=== PATIENT | male | born 1955 | race Caucasian/White ===

== ENCOUNTER → 2020-01-05 08:23 | Outpatient (CLI) | payer OTHER, SELFPAY ==
[2020-01-05 11:18] LABS: COVID19 -Nasal RAPID Negative (Negative)
== END ==
PROVIDERS: PCP Family Medicine; Visit Provider Physician Assistant
DX: Z11.59 Encounter for screening for other viral diseases (principal)
CPT/HCPCS: 87635

== ENCOUNTER 2020-01-07 12:44 | Day surgery (SDC) | payer OTHER, SELFPAY ==
[2020-01-07] VITALS (10 sets, daily range): BP systolic 89–113; BP diastolic 56–73; PULSE 51–68; RESP 13–16; TEMP 36.6–36.9; O2SAT 97–98; BMI 20.9
--- NOTE | 2020-01-07 | PATH_ITS ---
[facility] Accession Number: [id number] . 01 Material submitted: . sigmoid colon - SIGMOID POLYP . 02 Diagnosis: Sigmoid Colon, Polyp: Colonic mucosa with prominent benign lymphoid aggregate. Negative for serrated lesion, dysplasia or malignancy. MRV 01/11/2020 0942 Local . 02 Electronically signed: . Prasanna Ascencio MD, PhD, Pathologist NPI- [id number] . 01 Gross description: . SIGMOID POLYP: Received in formalin is 1 fragment(s) of singh, soft tissue measuring 0.5 x 0.3 x 0.3 cm submitted entirely in 1 cassette(s) /QBJ 01/08/2020 0759 Local . 02 Pathologist provided ICD-10: K63.5 . 02 CPT . 524284 Performed at: 01 [facility] [address] [id number] MD Enzo Starks MD Phone: [phone] Performed at: [address] [facility] [address] [place], [place] [id number] MD Gabrielle Arredondo MD Phone: [phone]
[2020-01-07] MEDS: MIDAZOLAM 5 MG/5 ML VIAL IV (01:40)
--- NOTE | 2020-01-07 12:05 | PM.HP.1 ---
History of Present Illness History of Present Illness Date Patient Seen: 01/07/20 Chief complaint: SDC Narrative: 63 Years Old Male seen today for consideration of a screening colonoscopy. Last colonoscopy in 2014 indicated for family history of colorectal cancer and colon polyps, normal except for small internal hemorrhoids. Prior that, had 2 previous colonoscopies in 2004 and 2009, both normal. There have been no lower GI symptoms suggesting disease such as change in bowel habits, bleeding, abdominal pain or anemia. He does have a family history of colon cancer in his maternal uncle. Sister had colon polyps in her 40s. Overall health issues have been stable, including no major cardiac events for at least 6 weeks. Past Medical History: Left inguinal hernia Musculoskeletal:Cervical strain with mild L.neuropraxis 02/23 Obstructive Sleep Apnea: dx'd in 2009 ADVANCE DIRECTIVES: Durable Power of Deliverer Outside signed 02/24 Hemangioma of skin and subcutaneous tissue PALPITATIONS Dizzy spells PLANTAR WART HEARING LOSS INSOMNIA BUNION ACROMIOCLAVICULAR JOINT SEPARATION, RIGHT LATERAL EPICONDYLITIS, RIGHT Past Surgical History: Hernia Repair: left inguinal and right; Vasectomy Colonoscopies x 3, normal Family History: Father: Skin Cancer; Myasthenia gravis, Deafnes Mother: Hypertension , Stroke Sister(s): Adenomatous colon polyps (40's) Maternal Grandfather: Congestive Heart Failure Maternal Grandmother: Type 2 Diabetes Maternal uncle: colon cancer 80's Family Hx Colon Cancer Social History: Marital Status: Children: Occupation: Business Systems Architect Household Members: Meagan (11/12/56) 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 2 acoholic drinks per day Patient History Family & Social History Tobacco & Substance use: Smoking Status Former smoker Meds Home Medications and Allergies Home Medications Medication Instructions Recorded Confirmed Type Respironics Dreamstation CPAP #1 ea 12/01/18 12/01/18 History aspirin [Aspir-Low] 81 mg PO DAILY 01/07/20 01/07/20 History trazodone 100 mg PO BEDTIME 01/07/20 01/07/20 History Allergies Allergy/AdvReac Type Severity Reaction Status Date / Time No Known Drug Allergies Allergy Verified 01/07/20 13:21 Review of Systems Review of Systems ROS: Yes All systems reviewed with the patient and are negative except as otherwise documented Exam Narrative Exam Narrative: GENERAL: Alert and oriented, appearing stated age and in no acute distress. HEENT: Head normocephalic/atraumatic. Pupils equal, round, and reactive to light and accomodation. Extraocular muscles intact. Tympanic membranes clear. Nasal mucosa moist, septum midline. Oral mucosa moist, no lesions. Neck soft and supple, no lymphadenopathy. LUNGS: Clear to ausculation bilaterally, no wheezes, rhonchi or rales. CV: Normal S1 and S2 with regular rate and rhythm, no audible murmurs, rubs or gallops. ABDOMEN: Soft, non-tender, non-distended, no organomegaly. Positive bowel sounds. EXTREMITIES: No clubbing, cyanosis, or edema. NEURO: Cranial nerves II through XII grossly intact, no focal deficits. PSYCH: Alert and oriented x 3. SKIN: No concerning lesions. Assessment & Plan Assessment & Plan narrative: 1. Family history of colon cancer 2. Family history of colon polyps 3. Screening for colon cancer Plan for colonoscopy. The nature and character of the procedure as well as anticipated results were discussed. The possibility of not completing the procedure was also discussed. Possible complications including aspiration pneumonia, bleeding, perforation and reaction to medications either for sedation or preparation and missed lesions were discussed. Questions were answered and proceeding to the colonoscopy was elected. Informed consent signed. I sincerely appreciate the referral allowing me to participate in this patient's care. Please contact me with any questions or concerns.
--- NOTE | 2020-01-07 12:06 | PM.OP.ENDO ---
Operative Date/Time/Diagnoses Date of procedure: 01/07/20 Procedure Notes Procedure in detail: ENDOSCOPIST: Erica Hi MD Sedation RN: Maria Perez RN Sedation start time: 1:57 p.m. Sedation end time: 2:25 p.m. PROCEDURE: Colonoscopy with biopsy INDICATIONS: 1. Family history of colon cancer 2. Family history of colon polyps 3. Screening for colon cancer MEDICATION: Levsin 0.125 mg sublingual, incremental doses of Versed and fentanyl until appropriate level sedation achieved. ASA CLASS: 2 CECAL WITHDRAWAL TIME: 13 minutes COMPLICATIONS: None. EXTENT OF PROCEDURE: Cecum. QUALITY OF PREP: Good with portions of liquid stool. PROCEDURE: Prior to insertion of the colonoscope, a digital rectal examination was accomplished with circumferential palpation of the distal rectal mucosa without significant findings being noted. The high-definition colonoscope was passed into the rectum in the usual fashion and advanced over to the cecum without difficulty. The ileocecal valve, appendiceal stoma, and medial wall all could be inspected and no abnormalities were seen. ASCENDING COLON: As the colonoscope was withdrawn, care was taken to expose and inspect the haustral folds and no abnormalities were seen. HEPATIC FLEXURE: Normal, no polyps, diverticula or other abnormalities. TRANSVERSE COLON: Normal, no polyps, diverticula or other abnormalities. DESCENDING COLON: Normal, no polyps, diverticula or other abnormalities. SIGMOID COLON: 2 mm polyp, removed with cold biopsy forceps. Otherwise, no diverticula or other abnormalities. RECTUM: Normal. J maneuver was produced. There was no significant perianal disease. The J maneuver was broken. The remainder of the rectum was inspected and there was minor external hemorrhoid disease. The scope was withdrawn. IMPRESSION: 1. Sigmoid polyp x1, 2 mm, removed with cold biopsy forceps. 2. External hemorrhoids, nonthrombosed PLAN: 1. Follow-up in clinic status pathology results. The possibility of a missed lesion including a malignancy has been discussed with the patient previously. Potential alarm symptoms have been discussed and should be reported immediately.
--- NOTE | 2020-01-07 13:15 | SUR.PREOP ---
Pt waiting in wrong waiting room, in [place] getting ready for procedure.
[2020-01-07] MEDS: HYOSCYAMINE 0.125 MG TABLET PO (13:24)
[2020-01-07] MEDS: LACTATED RINGERS 1,000 ML 200 ML IV (13:25)
[2020-01-07] MEDS: fentaNYL 250 MCG/5 ML INJ IV (13:57)
--- NOTE | 2020-01-07 15:55 | SUR.PHASEII ---
belly soft, pt ready to go left when ready and left in stable condition.
== END 2020-01-07 15:55 | disposition home or self-care (01) ==
PROVIDERS: PCP Family Medicine; Referring Provider Student in an Organized Health Care Education/Training Program; Visit Provider Student in an Organized Health Care Education/Training Program
PROC: 0DJD8ZZ Inspection of Lower Intestinal Tract, Via Natural or Artificial Opening Endoscopic (ICD-10-PCS; CPT 45378; principal; 2020-01-07 13:45)
DX: Z12.11 Encounter for screening for malignant neoplasm of colon (principal); Z80.0 Family history of malignant neoplasm of digestive organs; G47.33 Obstructive sleep apnea (adult) (pediatric); K64.4 Residual hemorrhoidal skin tags; K63.5 Polyp of colon
CPT/HCPCS: 45380; J2250; J3010

== ENCOUNTER → 2020-04-01 11:08 | Outpatient (CLI) | payer OTHER, SELFPAY ==
--- NOTE | 2020-04-01 | DI.MRI.S_ITS ---
PROCEDURE: MR LOWER LEG LT WO CON COMPARISON: [facility] Vernon Gunter, CR, XR TIBIA FIBULA LEFT, 03/27/2020, 12:08. INDICATIONS: Strain of other muscle(s) and tendon(s) of posterior muscle TECHNIQUE: Bilateral coronal T1 spin echo and STIR. Axial T1 spin echo and T2 fast spin echo with fat saturation; sagittal T1 spin echo with fat saturation and STIR through the left lower leg. FINDINGS: The osseous structures are intact without signs of acute trabecular bone injury or fracture. 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 Focal cartilage fissuring and subchondral edema are noted in the lateral femoral trochlea. Nonedematous ossifications are seen within the soleus tendon, corresponding to radiographic ossifications. Focal mild soft tissue edema is seen in the posterior aspect of the soleus muscle just deep to the gastrocnemius muscle. The plantaris tendon is intact. The remaining musculature of the left lower leg is normal in bulk.Convex appearance of the Achilles tendon is compatible with mild tendinosis. There is tendinosis and likely the longitudinal split tearing of the peroneus brevis tendon at the level of the distal fibula. IMPRESSION: 1. Low-grade strain of the soleus muscle in the posterior central portion of the calf. 2. Mild Achilles tendinosis. 3. 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 Dictated by: Mayo Miller M.D. on 04/03/2020 at 10:02 Approved by: Mayo Miller M.D. on 04/03/2020 at 10:14
== END ==
PROVIDERS: PCP Family Medicine; Referring Provider Orthopaedic Surgery; Visit Provider Orthopaedic Surgery
DX: S86.112A Strain of other muscle(s) and tendon(s) of posterior muscle group at lower leg level, left leg, initial encounter (principal); X58.XXXA Exposure to other specified factors, initial encounter
CPT/HCPCS: 73718

== ENCOUNTER → 2020-12-16 11:30 | Outpatient (CLI) | payer OTHER, SELFPAY ==
[2020-12-16 12:22] LABS: COVID19 -Nasal RAPID Negative (Negative)
== END ==
PROVIDERS: PCP Family Medicine; Referring Provider Physician Assistant; Visit Provider Physician Assistant
DX: J02.9 Acute pharyngitis, unspecified (principal); Z20.822 Contact with and (suspected) exposure to COVID-19
CPT/HCPCS: 87070; 87635

== ENCOUNTER → 2023-10-28 14:33 | Outpatient (CLI) | payer OTHER, SELFPAY ==
--- NOTE | 2023-10-28 14:38 | DI.RAD.S_ITS ---
PROCEDURE: XR ANKLE LT MIN 3V INDICATIONS: ANKLE PAIN TECHNIQUE: 3 views of the ankle were acquired. COMPARISON: None. FINDINGS: Bones: No fractures or dislocations. Ankle mortise is normally aligned. No suspicious bony lesions. Soft tissues: Moderate ankle effusion appreciated. There is mild diffuse soft tissue swelling. IMPRESSION: << moderate ankle effusion. If there has been no trauma, this could indicate inflammation or infection. Dictated by: Obi Ledesma M.D. on 10/29/2023 at 15:24 Approved by: Obi Ledesma M.D. on 10/29/2023 at 15:25
== END ==
LOC: RAD 14:36
PROVIDERS: PCP Family Medicine; Referring Provider Family Medicine; Visit Provider Family Medicine
DX: M25.571 Pain in right ankle and joints of right foot (principal); M25.472 Effusion, left ankle
CPT/HCPCS: 73610

== ENCOUNTER → 2023-12-30 | Outpatient (CLI) | payer OTHER, SELFPAY ==
--- NOTE | 2023-12-30 16:24 | DI.US.S_ITS ---
PROCEDURE: US ABD AORTA ANEURYSM SCREEN INDICATIONS: SCREENING FOR CARDIOVASCULAR DISORDERS TECHNIQUE: Real time scanning was performed of the aorta and iliac arteries, with image documentation. COMPARISON: None. FINDINGS: Aorta: Proximal aortic diameter measures 2.3 cm. Mid-aorta measures 2.0 cm. Distal aortic diameter is 1.8 cm. Iliac arteries: Right common iliac artery measures 1.2 cm. Left common iliac artery measures 1.3 cm. IMPRESSION: No abdominal aortic or proximal common iliac artery aneurysm. Dictated by: Lucas CLAY Interpreted: Enzo Zavala MD on 12/31/2023 at 9:45 Transcribed by: DIONISIO on 12/31/2023 at 9:45 Approved by: Enzo Zavala M.D. on 01/07/2024 at 8:27
== END ==
PROVIDERS: PCP Family Medicine; Referring Provider Family Medicine; Visit Provider Family Medicine
DX: Z13.6 Encounter for screening for cardiovascular disorders (principal)
CPT/HCPCS: 76706